=== PATIENT | male | born 1990 | race American Indian/Alaskan Native ===

== ENCOUNTER 2017-01-06 06:37 | Emergency (ER) | payer SELFPAY ==
[2017-01-06 06:50] VITALS: TEMP 97
[2017-01-06] MEDS ORDERED: DiphenhydrAMINE 50 mg/ml Inj ONE (07:37)
[2017-01-06] MEDS ORDERED: DiphenhydrAMINE 50 mg/ml Inj IM STA (07:40)
[2017-01-06 08:00] VITALS: RESP 18
[2017-01-06 08:27] LABS: BASO # 0.2 K/uL (0.0-0.2); BASO % 2.2 % (0.0-2.0); EOS # 0.2 K/uL (0.0-0.7); EOS % 2.2 % (0.0-4.0); HEMATOCRIT 48.9 % (35.0-51.0); LYMPH # 1.9 K/uL (1.0-4.3); LYMPH % 18.7 % (20.0-40.0); MEAN CORPUSCULAR HEMOGLOBIN 33.7 pg (27.0-31.0); MEAN CORPUSCULAR HGB CONC 34.7 g/dL (33.0-37.0); MEAN PLATELET VOLUME 7.2 fL (7.2-11.7); MONO # 0.7 K/uL (0.0-0.8); MONO % 7.3 % (0.0-10.0); NRBC % 0.1 % (0.0-2.0); RED CELL DISTRIBUTION WIDTH 13.2 % (11.5-14.5); WHITE BLOOD COUNT 10.1 K/uL (4.8-10.8)
[2017-01-06 08:42] LABS: ALB/GLOB RATIO 1.4 (1.0-2.1); ALCOHOL SERUM 101 mg/dl (0-10); ALKALINE PHOSPHATASE 73 U/L (38-126); ALT/SGPT 34 U/L (21-72); AST/SGOT 28 U/L (17-59); BILIRUBIN,TOTAL 0.9 mg/dL (0.2-1.3); BLOOD UREA NITROGEN 8 mg/dL (9-20); CALCIUM 8.7 mg/dl (8.6-10.4); CARBON DIOXIDE 20 mmol/L (22-30); CHLORIDE 105 mmol/L (98-107); GFR AFRICAN-AMERICAN > 60; GLUCOSE,RANDOM 79 mg/dL (75-110); SODIUM 142 mmol/L (132-148); TOTAL PROTEIN 8.3 g/dL (6.3-8.3)
[2017-01-06 09:03] LABS: RBC URINE 18 /hpf (0-3); URINE BACTERIA OCC (<OCC); URINE BILIRUBIN NEGATIVE (NEGATIVE); URINE BLOOD 1+ (NEGATIVE); URINE COLOR Yellow (YELLOW); URINE GLUCOSE (UA) NORMAL (Normal); URINE KETONE NEGATIVE (NEGATIVE); URINE LEUKOCYTE ESTERASE NEG Leu/uL (Negative); URINE PROTEIN 1+ mg/dL (NEGATIVE); URINE UROBILINOGEN NORMAL mg/dL (0.2-1.0); WBC URINE 13 /hpf (0-5)
--- NOTE | 2017-01-06 09:09 | C.PDOC ---
History Of Present Illness 26-year-old male with PMHx of substance abuse brought to the emergency department by EMS for evaluation of substance abuse. Patient was found behaving bizarrely in the street. On ED arrival aptient is agitated and under influence of drugs. Time Seen by Provider: 01/06/17 07:09 Chief Complaint (Nursing): Altered Mental Status History Per: EMS History/Exam Limitations: Intoxication Onset/Duration Of Symptoms: Unknown Current Symptoms Are (Timing): Still Present Past Medical History Reviewed: Historical Data, Nursing Documentation, Vital Signs Vital Signs: Last Vital Signs Temp 97 F L 01/06/17 06:43 Pulse 100 H 01/06/17 13:30 Resp 18 01/06/17 13:30 BP 115/73 01/06/17 13:30 Pulse Ox 98 01/06/17 13:32 - Medical History PMH: No Chronic Diseases Family History: States: No Known Family Hx - Social History Hx Alcohol Use: (unknown) Hx Substance Use: (unknown) - Immunization History Hx Tetanus Toxoid Vaccination: (unknown) Hx Influenza Vaccination: (unknown) Hx Pneumococcal Vaccination: (unknown) Review Of Systems Review Of Systems: ROS cannot be obtained secondary to pt's inabilty to answer questions. Physical Exam - Physical Exam Appears: Non-toxic, No Acute Distress, Other (under influence of drugs/alcohol ) Skin: Warm, Dry Head: Atraumatic, Normacephalic Eye(s): bilateral: Normal Inspection Oral Mucosa: Moist Cardiovascular: Rhythm Regular Respiratory: Normal Breath Sounds, No Rales, No Rhonchi, No Wheezing Extremity: Normal ROM, No Deformity Extremity: Bilateral: Atraumatic, Normal Color And Temperature, Normal ROM Neurological/Psych: Other (awake, alert, agitated) ED Course And Treatment - Laboratory Results Result Diagrams: 01/06/17 08:23 01/06/17 08:23 O2 Sat by Pulse Oximetry: 98 (ra) Pulse Ox Interpretation: Normal Progress Note: Patient given IM Ativan, Haldol and Benadryl. Blood work, UA, UDS ordered and reviewed. Patient pending sobriety. 9:45am - Patient sleeping on stretcher, arousable to verbal stimuli. Reevaluation Time: 13:30 Reassessment Condition: Improved (Patient currently AAOx3, ambulating normally in the ED. He is clinically sober at this time, will discharge.) Disposition Counseled Patient/Family Regarding: Studies Performed, Diagnosis, Need For Followup - Disposition Referrals: [facility] [Outside] Disposition: HOME/ ROUTINE Disposition Time: 13:30 Condition: STABLE Instructions: Polysubstance Abuse (ED) Forms: [facility] (Khmer), General Discharge Instructions Print Language: POLISH - POA Present On Arrival: None - Clinical Impression Clinical Impression: PCP abuse - Scribe Statement The provider has reviewed the documentation as recorded by the Scribe (Lupe Corrigan) All medical record entries made by the Scribe were at my direction and personally dictated by me. I have reviewed the chart and agree that the record accurately reflects my personal performance of the history, physical exam, medical decision making, and the department course for this patient. I have also personally directed, reviewed, and agree with the discharge instructions and disposition.
[2017-01-06 13:31] VITALS: BP 115/73; PULSE 100
[2017-01-06 13:40] VITALS: O2SAT 98
== END 2017-01-06 13:48 | disposition home or self-care (01) ==
LOC: C.ER 06:37 → EDBD 06:37 → C.ER 13:48
DX: F16.10 Hallucinogen abuse, uncomplicated (principal)
CPT/HCPCS: 36415; 80053; 81001; 82948; 85025; 96372; 96374; 99285; G0480; J1200; J1630; J2060